=== PATIENT | female | born 1995 | race African-American/Black ===

== ENCOUNTER 2016-05-26 12:21 | Emergency (ER) | payer MEDICAID | END 2016-05-26 13:17 | disposition home or self-care (01) | LOC: D.ER 12:21 | DX: S63.613A Unspecified sprain of left middle finger, initial encounter (principal); X58.XXXA Exposure to other specified factors, initial encounter; Y93.89 Activity, other specified; Y92.89 Other specified places as the place of occurrence of the external cause; J45.909 Unspecified asthma, uncomplicated ==

== ENCOUNTER 2017-08-02 11:32 | Emergency (ER) | payer MEDICAID | END 2017-08-02 13:15 | disposition home or self-care (01) | LOC: D.ER 11:32 | DX: J02.0 Streptococcal pharyngitis (principal) ==

== ENCOUNTER 2017-10-10 12:55 | Emergency (ER) | payer MEDICAID ==
[~2017-10-10] VITALS: Ht 170.2 cm; Wt 59.1 kg
[2017-10-10 13:28] VITALS: Ht 170.2 cm; Wt 59.1 kg
[2017-10-10] MEDS ORDERED: NAPROSYN500 MG PO (13:47)
[2017-10-10 13:51] VITALS: BP 121/78
== END 2017-10-10 13:54 | disposition home or self-care (01) ==
LOC: D.ER 12:55
DX: J02.0 Streptococcal pharyngitis (principal); J45.909 Unspecified asthma, uncomplicated

== ENCOUNTER 2017-10-12 08:46 | Emergency (ER) | payer MEDICAID ==
[~2017-10-12] VITALS: Ht 170.2 cm; Wt 59.1 kg
[~2017-10-12 08:46] MED LIST: NAPROSYN500 MG PO
[2017-10-12 08:51] VITALS: BP 106/51; Ht 170.2 cm; Wt 59.1 kg
[2017-10-12] MEDS ORDERED: NORCO 7.5/325 T1 TA1 PO (09:17)
[2017-10-13] MEDS ORDERED: AMOXICILLIN875 MG PO (21:16)
[2017-10-13] MEDS ORDERED: ZOFRAN4 MG PO (21:18)
== END 2017-10-12 09:38 | disposition home or self-care (01) ==
LOC: D.ER 08:46
DX: J02.0 Streptococcal pharyngitis (principal)

== ENCOUNTER 2017-10-13 17:08 | Emergency (ER) | payer MEDICAID ==
[~2017-10-13] VITALS: Ht 170.2 cm; Wt 59.1 kg
[~2017-10-13 17:08] MED LIST changes: +NORCO 7.5/325 T1 TA1 PO
[2017-10-13 17:27] VITALS: Ht 170.2 cm; Wt 59.1 kg
[2017-10-13] MEDS ORDERED: AMOXICILLIN875 MG PO (21:16)
[2017-10-13] MEDS ORDERED: ZOFRAN4 MG PO (21:18)
[2017-10-13 21:48] VITALS: BP 132/78
== END 2017-10-13 21:49 | disposition home or self-care (01) ==
LOC: D.ER 17:08
DX: J02.0 Streptococcal pharyngitis (principal); J03.90 Acute tonsillitis, unspecified